=== PATIENT | male | born 1960 | race Caucasian/White ===

== ENCOUNTER 2021-12-12 06:24 | Observation (INO) ==
--- NOTE | 2021-11-23 14:08 | PAT Medication Instructions ---
Medication Instructions Date of Service November 23, 2021 Home Medications atorvastatin 10 mg tablet 10 mg PO HS gabapentin 600 mg tablet 600 mg PO HS PRN insulin glargine 100 unit/mL (3 mL) subcutaneous pen (Basaglar KwikPen U-100 Insulin) 22 unit SUBCUT HS lisinopril 10 mg-hydrochlorothiazide 12.5 mg tablet 1 tab PO QAM melatonin 5 mg tablet 5 mg PO HS PRN sitagliptin 25 mg tablet (Januvia) 25 mg PO QAM DO NOT take the morning of surgery lisinopril 10 mg-hydrochlorothiazide 12.5 mg tablet 1 tab PO QAM sitagliptin 25 mg tablet (Januvia) 25 mg PO QAM Take evening before surgery atorvastatin 10 mg tablet 10 mg PO HS gabapentin 600 mg tablet 600 mg PO HS PRN (if needed) insulin glargine 100 unit/mL (3 mL) subcutaneous pen (Basaglar KwikPen U-100 Insulin) 22 unit SUBCUT HS melatonin 5 mg tablet 5 mg PO HS PRN (if needed) OTHERWISE NOTHING TO EAT OR DRINK AFTER MIDNIGHT Other Notes If you have any questions please call us at [phone] or [phone] or [phone] or [phone]
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
--- NOTE | 2021-11-28 12:24 | PAT Medication Instructions ---
Medication Instructions Date of Service November 28, 2021 Home Medications atorvastatin 10 mg tablet 10 mg PO HS gabapentin 600 mg tablet 600 mg PO BID PRN insulin glargine 100 unit/mL (3 mL) subcutaneous pen (Basaglar KwikPen U-100 Insulin) 22 unit SUBCUT HS melatonin 5 mg tablet 5 mg PO HS PRN sitagliptin 25 mg tablet (Januvia) 25 mg PO QAM chlorthalidone 25 mg PO DAILY lisinopril 20 mg PO DAILY DO NOT take the morning of surgery sitagliptin 25 mg tablet (Januvia) 25 mg PO QAM chlorthalidone 25 mg PO DAILY lisinopril 20 mg PO DAILY Take morning of surgery With a small sip of water, OTHERWISE NOTHING TO EAT OR DRINK AFTER MIDNIGHT: gabapentin 600 mg tablet 600 mg PO BID PRN(if needed) Take evening before surgery gabapentin 600 mg tablet 600 mg PO BID PRN(if needed) atorvastatin 10 mg tablet 10 mg PO HS insulin glargine 100 unit/mL (3 mL) subcutaneous pen (Basaglar KwikPen U-100 Insulin) 22 unit SUBCUT HS melatonin 5 mg tablet 5 mg PO HS PRN(if needed) Other Notes If you have any questions please call us at [phone] or [phone] or [phone] or [phone]
[~2021-12-12 06:24] MED LIST: ACETAMINOPHEN 500 MG TAB PO SCH; CeleBREX 200 MG CAP PO SCH; GABAPENTIN 600 MG DOSE PO SCH; LR 15ML/HR IV SCH
[2021-12-12] MEDS ORDERED: MIDAZOLAM HCL 1 MG/ML 2ML VIAL ONE (06:56)
[2021-12-12] MEDS ORDERED: fentaNYL citrate 100 MCG/2 ML VIAL ONE (06:56)
[2021-12-12] MEDS ORDERED: PROPOFOL IV EMULSION 10 MG/ML 100 ML VIAL IV ONE (06:59)
[2021-12-12] MEDS ORDERED: ONDANSETRON INJ 2 MG/ML 2 ML VIAL IV PRN ×2 (07:31→11:28)
[2021-12-12] MEDS ORDERED: HYDROmorphone INJ 2 MG/ML SYR/VIAL IV PRN (07:31)
[2021-12-12] MEDS ORDERED: ePHEDrine sulfate 50 MG/ML AMP IV PRN (07:31)
[2021-12-12] MEDS ORDERED: PROMETHAZINE HCL 12.5 MG in SODIUM CHLORIDE 0.9% 50 ML IV PRN ×2 (07:31→11:28)
[2021-12-12] MEDS ORDERED: ATROPINE SULFATE 0.1 MG/ML 10ML SYR IV PRN (07:31)
--- NOTE | 2021-12-12 07:36 | History & Physical Bridge Note ---
Date of Service December 12, 2021 History & Physical Bridge Note I have examined the patient, reviewed the History & Physical and in the interval since the performance of the History & Physical I have noted the following changes of clinical significance: no changes noted
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
[2021-12-12] MEDS ORDERED: ceFAZolin 330 MG/ML 1 GM VIAL ONE (07:39)
[2021-12-12] MEDS ORDERED: FLOSEAL HEMOSTATIC MATRIX 10ML TOP ONE (08:18)
[2021-12-12] MEDS ORDERED: ONDANSETRON INJ 2 MG/ML 2 ML VIAL ONE (08:20)
[2021-12-12] MEDS ORDERED: ROCURONIUM BROMIDE 10 MG/ML 5 ML VIAL IV ONE (08:20)
[2021-12-12] MEDS ORDERED: SUCCINYLCHOLINE CHLORIDE 20 MG/ML 10 ML VIAL IV ONE (08:20)
[2021-12-12] MEDS ORDERED: PROPOFOL IV EMULSION 10 MG/ML 20 ML VIAL IV ONE (08:20)
[2021-12-12] MEDS ORDERED: LIDOCAINE 2% 2 ML VIAL/AMP(20MG/ML) INFIL ONE (08:20)
[2021-12-12] MEDS ORDERED: NEOSTIGMINE METHYLSULFATE 1 MG/ML 10ML VIAL ONE (08:20)
[2021-12-12] MEDS ORDERED: GLYCOPYRROLATE 0.2 MG/ML VIAL ONE (08:20)
--- NOTE | 2021-12-12 09:07 | Operative Report ---
Post Operative Report Pre & Post Diagnosis Operation Date: 12/12/21 07:45 Pre-Op Diagnosis: Spinal Stenosis, Cervical Region Post-Op Diagnosis: Spinal Stenosis, Cervical Region I identified the patient and participated in the time-out.: Yes Procedure Operation Date: 12/12/21 07:45 Actual Procedures #1 anterior cervical discectomy with bilateral foraminotomies C4-C5. #2 anterior cervical arthrodesis C4-C5. #3 placement of 7 mm spiral cage filled I factor C4-C5. #4 application of arteaga plate and screws across C4-C5. Surgeon Vinny Dubois, DO Trial Attorney Marium Delgado Estimated Blood Loss 10 Findings See Below The patient is 5 foot 5 inches tall weighing over 125 kg with a BMI in excess of 46. The patient's body habitus did contribute to significant technical difficulty from positioning to exposure. This had at least 50% increased operative time. Specimens None Indications This is a 61-year-old male who presents above-mentioned diagnosis after failing course of nonoperative care is here for surgical invention. Description of Procedure Patient was met with identified informed consent obtained. Patient was then taken to the operative suite underwent a patient placed in a supine position adjustable head Hardin hogshead weigher. All bony prominences well-padded eyes inspected to ensure no external pressure placed upon the. This point the anterior cervical spine was prepped and draped in a sterile fashion. With assistance of fluoroscopy identified the C4-5 disc space and a transverse incision was placed on the right anterior aspect of the cervical spine overlying this region. Blunt dissection with assistance of bipolar electrocautery was performed until exposing the anterior cervical spine at C4-C5. A self-retaining retractors placed. Then performed a complete discectomy of C4-C5 out to the uncovertebral's bilaterally. Fabius distracting pins were utilized to assist in visualization. I removed all posterior annular fibers longitudinal ligament bilateral foraminotomies performed. Endplates were then burred to subcortical bleeding bone and a 7 mm Spira cage filled with I factor tapped in position. Distracting apparatus was removed and a 5 complete and screws applied with the assistance of fluoroscopy. The incision was then copiously irrigated explored to ensure no demonstrate surrounding structures remaining bleeding. 10 round IVETTE drain inserted. The incision was then closed with 2 Vicryl in a fashion of 4 Monocryl for final skin closure. Steri-Strip sterile dressings placed. Patient waken taken PACU stable condition. Lastly Marium Delgado was present throughout the entire procedure involved patient positioning complex portions of the surgery and final skin closure. I attest to the content of the Intraoperative Record and any orders documented therein. Any exceptions are noted below.
--- NOTE | 2021-12-12 09:27 | Fluoroscopy Report ---
FL cervical 2-3V CLINICAL HISTORY: ACDF C4-C5 TECHNIQUE: 2 views were obtained with the C-arm in the OR with the above procedure. Total fluoroscopy time was 16.7 seconds. Total skin dose was 3.01 mGy. Comparison: None available at the time of this dictation. FINDINGS/IMPRESSION: Intraoperative images were obtained of ACDF of C4-C5. Please correlate with intraoperative fluoroscopy and operative report. ACT 112: Negative or not required by law. Electronically signed by: Landry Liu M.D. 12/12/2021 9:26 AM
[2021-12-12] MEDS: fentaNYL citrate 100 MCG/2 ML VIAL IV PRN ×4 (09:39→10:28)
--- NOTE | 2021-12-12 10:16 | Anesthesiology Progress Note ---
Date of Service December 12, 2021 Anesthesia Post Procedure Vital Signs Vital Signs: Temp Pulse Pulse Resp BP Pulse Ox 12/12/21 10:05 62 16 126/76 94 12/12/21 09:55 63 15 136/80 95 12/12/21 09:45 69 19 119/83 95 12/12/21 09:35 81 20 137/82 95 12/12/21 09:26 97.0 F L 86 20 141/81 H 97 12/12/21 06:50 98.4 F 75 20 135/79 95 Pain Intensity Neck: Pain Intensity: 2 Transfer of Care Handoff Completed per policy Notes Mental Status: alert / awake / arousable and participated in evaluation Patient Amnestic to Procedure: Yes Nausea / Vomiting: adequately controlled Pain: adequately controlled and improving with treatment Airway Patency, RR, SpO2: stable & adequate BP & HR: stable & adequate Hydration State: stable & adequate Anesthetic Complications: no major complications apparent and Pt Satisfied with anesthetic care
[2021-12-12] MEDS ORDERED: ONDANSETRON 4 MG OD TAB PO PRN (11:28)
[2021-12-12] MEDS ORDERED: METOCLOPRAMIDE HCL INJ 5 MG/ML 2 ML VIAL IV PRN (11:28)
[2021-12-12] MEDS ORDERED: SOD PHOSPHATE/SOD BIPHOSPHATE ENEMA 132 ML BTL PR PRN (11:28)
[2021-12-12] MEDS ORDERED: bisacodyL 10 MG SUPP PR PRN (11:28)
[2021-12-12] MEDS ORDERED: ALUMINUM/MAGNESIUM SUSP 30 ML UDC PO PRN (11:28)
[2021-12-12] MEDS ORDERED: LORazepam 2 MG/1 ML VIAL IV PRN (11:28)
[2021-12-12] MEDS ORDERED: HYDROmorphone INJ 1 MG/ML SYRINGE IV PRN (11:28)
[2021-12-12] MEDS ORDERED: MAGNESIUM HYDROXIDE SUSP 30 ML UDC PO PRN (11:28)
[2021-12-12] MEDS ORDERED: DO NOT ADMINISTER PNEUMOCOCCAL VACCINE PRN (11:28)
[2021-12-12] MEDS ORDERED: DO NOT ADMINISTER FLU VACCINE PRN (11:28)
[2021-12-12] MEDS ORDERED: ACETAMINOPHEN 500 MG TAB PO PRN (11:28)
[2021-12-12] MEDS ORDERED: hydrOXYzine HCl 25 MG TAB PO PRN (11:28)
[2021-12-12] MEDS ORDERED: HYDROmorphone INJ 0.5 MG/0.5 ML SYR IV PRN (11:28)
[2021-12-12] MEDS ORDERED: RACEPINEPHRINE 2.25% NEBU SOLN 0.5 ML VIAL INH PRN (11:28)
[2021-12-12] MEDS ORDERED: diphenhydrAMINE Capsule 25 MG CAP PO PRN (11:28)
[2021-12-12] MEDS ORDERED: NALOXONE HCL 0.4 MG/1 ML VIAL/CARP IV PRN (11:28)
[2021-12-12] MEDS ORDERED: ACETAMINOPHEN 1,000 MG/100 ML VIAL IV PRN (11:28)
[2021-12-12] MEDS ORDERED: LORazepam 0.5 MG TAB PO PRN (11:28)
[2021-12-12] MEDS ORDERED: FAMOTIDINE 20 MG TAB PO PRN (11:28)
[2021-12-12] MEDS ORDERED: PHARMACY GLYCEMIC MGMT CONSULT PRN (11:28)
[2021-12-12] MEDS ORDERED: dexAMETHasone 8 MG in SYRINGE 0 ML IV PRN (11:28)
[2021-12-12] MEDS ORDERED: GABAPENTIN 600 MG TAB PO PRN (11:28)
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
[2021-12-12] MEDS ORDERED: CARBOHYDRATES FOR HYPOGLYCEMIA PO PRN (11:53)
[2021-12-12] MEDS ORDERED: GLUCOSE 40% GEL 15 GM TUBE PO PRN (11:53)
[2021-12-12] MEDS ORDERED: DEXTROSE 50% 50 ML SYRINGE IV PRN (11:53)
[2021-12-12] MEDS ORDERED: GLUCAGON FOR INJ 1 MG VIAL SQ PRN (11:53)
[2021-12-12] MEDS ORDERED: GLUCOSE 10 TABS/TUBE PO PRN (11:53)
[2021-12-12] MEDS: SODIUM CHLORIDE 0.9% 1000ML 1,000 ML IV SCH ×2 (12:13→19:11)
[2021-12-12] MEDS ORDERED: CHLORASEPTIC 1.4% SOLN 180 ML BTL MT PRN (12:13)
[2021-12-12] MEDS: oxyCODONE HCL IR 5 MG TAB (IMMEDIATE RELEASE) PO PRN ×2 (12:18→23:41)
[2021-12-12] MEDS: INSULIN ASPART PER UNIT SC SCH ×3 (13:04→21:45)
--- NOTE | 2021-12-12 14:40 | Pharmacy Report ---
Pharmacy Glycemic Short Note 2 - Date of Service December 12, 2021 - Glycemic Short BSG Results (Last 24 hours): 12/12/21 12/12/21 12/12/21 06:59 09:30 12:19 POC Glucose 157 H 151 H 203 H OUTPATIENT ANTIDIABETIC REGIMEN: * Januvia 100 mg PO qAM * Basaglar 22 units HS ASSESSMENT: * Mr Chappell is a 61 y/o M with a PMH of T2DM on insulin who presents for spinal surgery. HbA1C not known but currently ordered. * Preop BSGs are 157-151 mg/dL and postop is 203 mg/dL. * Will give home dose of Lantus at dinnertime. No additional Lantus as patient did not receive steroids. * Novolog weight-based stress of 2 for now. * Patient to receive dexamethasone 6 mg IV daily starting 12/13/21 so will order NPH and tighten Novolog accordingly. PLAN FOR INPATIENT GLYCEMIC CONTROL: * Hold outpatient oral diabetes medications * Basal insulin * Lantus 22 units SQ HS * Bolus insulin * NovoLog per scale ACHS or Q6hrs while NPO * Goal Range: Low 110 mg/dL - High 140 mg/dL * Correction Factor: 20 mg/dL/unit * Nutritional / Prandial insulin per carb ratio of 1 unit per 6 grams CHO consumed
[2021-12-12] MEDS: ceFAZolin 2000MG 2,000 MG/15 ML SYR IV SCH ×2 (15:11→23:41)
[2021-12-12] MEDS ORDERED: INSULIN GLARGINE SOLOSTAR 100 UNITS/ML 3 ML PEN SC SCH (17:00)
[2021-12-12] MEDS: traMADol HCL 50 MG TABLET PO PRN (17:12)
[2021-12-12] MEDS ORDERED: ATORVASTATIN 10 MG TAB PO SCH (21:00)
[2021-12-12] MEDS ORDERED: DOCUSATE SODIUM/SENNA 50/8.6MG TAB PO SCH (21:00)
[2021-12-13] MEDS: SODIUM CHLORIDE 0.9% 1000ML 1,000 ML IV SCH (01:55)
[2021-12-13] MEDS ORDERED: POLYETHYLENE (MIRALAX) 17 GM PACK PO SCH (06:00)
[2021-12-13] MEDS: traMADol HCL 50 MG TABLET PO PRN ×2 (07:36→11:31)
[2021-12-13 07:41] LABS: Basophils # (auto) 0.01 K/uL (0-0.2); Basophils % (auto) 0.2 %; Eosinophils # (auto) 0.11 K/uL (0-0.5); Eosinophils % (auto) 2.2 %; Hematocrit (blood only) 38.3 % (42-52); Hemoglobin 13.1 g/dL (14.0-18.0); Lymphocytes # (auto) 1.13 K/uL (1.2-3.4); Lymphocytes % (auto) 22.4 %; Mean Corpuscular Hemoglobin 31.5 pg (25-34); Mean Corpuscular Hgb Conc 34.2 g/dL (32-36); Mean Corpuscular Volume 92.1 fL (80-100); Mean Platelet Volume 10.1 fL (7.4-10.4); Monocytes # (auto) 0.52 K/uL (0.11-0.59); Monocytes % (auto) 10.3 %; Neutrophils # (auto) 3.27 K/uL (1.4-6.5); Neutrophils % (auto) 64.9 %; Platelet Count 100 K/uL (130-400); RDW Coefficient of Variation 13.2 % (11.5-14.5); Red Blood Count 4.16 M/uL (4.7-6.1); White Blood Count 5.04 K/uL (4.8-10.8)
[2021-12-13 08:00] LABS: Albumin Globulin Ratio 1.8 (0.9-2); Albumin Level 4.1 gm/dl (3.4-5.0); BUN Creatinine Ratio 12.1 (10-20); Bilirubin,Total 1.9 mg/dl (0.2-1.0); Calcium 8.5 mg/dl (8.5-10.1); Creatinine Clr Calc Pharmacy 105.1 ml/min; Est GFR (African American) 105.1 ml/min; Est GFR (Non-African American) 90.6 ml/min; Globulin 2.3 gm/dl (2.5-4.0); Total Protein 6.4 gm/dl (6.0-8.3)
[2021-12-13 08:03] LABS: Estimated Average Glucose 180 mg/dl; Hemoglobin A1C 7.9 % (4.5-5.6)
--- NOTE | 2021-12-13 08:24 | Discharge Summary ---
Date of Service December 13, 2021 Principal Diagnosis Cervical spinal stenosis with radiculopathy Discharge Data Allergies Allergy/AdvReac Type Severity Reaction Status Date / Time No Known Drug Allergies Allergy Unknown NKDA Verified 12/12/21 06:47 Consultations 12/12/21 11:28 Consult Hospitalist Routine Procedures Performed Operation Date: 12/12/21 07:45 Actual Procedures p C4-C5 Anterior Cervical Discectomy and Fusion(Not Applicable) - Vinny Dubois DO Ordered Studies 12/12/21 07:45 FL cervical 2-3V Routine Hospital Course (1) Cervical stenosis of spinal canal: Patient 1 anterior cervical discectomy and fusion tolerated procedure well taken to orthopedic for postoperative. Postop day 1 swallowing well no hoarseness. Arm symptoms improved. IVETTE drain decreasing appropriate. Safely discharged home. Discharge orders instructions from the chart for further review. Total Time Total Time Spent Total Time Spent (In Minutes): 20 minutes Discharge Plan Discharge Items Patient Disposition: Home - Self-Care Reason For Visit: Spinal Stenosis, Cervical Region Discharge Diagnosis: Cervical spinal stenosis with radiculopathy Activity: As commented below Non-emergency contact: Primary Care Provider Call non-emergency contact if: you have any medication questions Follow-up/Referrals: Mil Weinstein [Primary Care Provider] - Diet: Regular Addtl Attending Provider Instructions: ACTIVITY RECOMMENDATIONS: SELF CARE INSTRUCTIONS AFTER CERVICAL FUSIONS 1. No smoking. Smoking drastically decreases the chance of a solid fusion. 2. No bending, lifting more than 5 pounds, or twisting (roll like a log when turning in bed). 3. You may shower 3 days after surgery. Thoroughly dry wound. Do not soak in the tub. 4. Cervical collar: Must be worn at all times including sleeping. You may remove the brace only to bath, eat and if you are sitting in a recliner. 5. Please walk as much as you can for exercise. Gradually increase the distance that you walk as your endurance increases. SPECIAL CARE INSTRUCTIONS: VERY IMPORTANT TO READ AND REVIEW A. Do not take any anti-inflammatory medications (i.e. Indocin, Advil, Aspirin, Naprosyn, Aleve, Motrin, etc.) as these may inhibit the chance of a solid fusion. Tylenol is okay to take. B. Your surgical incision has been closed with a cosmetic suture under the skin that will dissolve in about 6 weeks. In 14 days, you can use a pair of clean scissors and cut the suture that is left outside of the skin at the ends of your incision. C. Complications are uncommon, but please contact us if you have any signs or symptoms of: 1. wound infection (fever higher than 102.5 degrees F, redness, separation of wound, drainage, or increasing pain from the incision) 2. blood clots in legs (pain, swelling, redness and warmth in legs) 3. urinary tract infection (fever higher than 102.5 degrees, burning upon urination or increased frequency of urination) 4. nerve problems (inability to walk on your toes or heels, numbness, loss of bowel or bladder control) 5. any other symptoms that concern you. D. Please call the office at if you have any concerns or questions about your operation or recovery. MANAGING PAIN AFTER SPINAL SURGERY 1. Narcotic medication is intended for short-term use and will be provided for surgical pain. Surgical pain usually lasts for a period of 4-6 weeks. Narcotic medication includes Percocet, Vicodin, Darvocet, Tylenol #3 or Lortab. 2. Longer-term pain is more appropriately treated with non-narcotic medication such as Tylenol ES. 3. Muscle spasm is not appropriately treated with narcotics. Muscle relaxers such as Soma, Flexeril or Skelaxin can be used along with Tylenol ES. 4. Remember that we all live with some "aches and pains". This is not unusual or uncommon after an injury or as we get older. 5. We will provide appropriate medication within the normal guidelines of their prescribed use. We will also be very cautious and aware of potential abuse and extended duration of patients' medication needs. 6. Please allow 2-3 days to process refills. Prescriptions will not be mailed but must be picked up at the office. FOLLOW UP VISIT: Keep your scheduled follow-up appointment. Any questions, please call the office at . Pending Studies at Discharge: No Stand-Alone Forms: My Apptive, Smoking Cessation Medications and DC Order Prescriptions: New tramadol 50 mg tablet 50 mg PO Q6H PRN (Reason: pain, moderate) Qty: 30 RF: 0 oxycodone 5 mg tablet 5 mg PO Q6H PRN (Reason: pain, severe) Qty: 20 RF: 0 Continued gabapentin 600 mg Tablet 600 mg PO TID PRN (Reason: Pain) RF: 0 atorvastatin 10 mg Tablet 10 mg PO HS RF: 0 Januvia 25 mg Tablet 100 mg PO QAM RF: 0 insulin glargine [Basaglar KwikPen U-100 Insulin] 100 unit/mL (3 mL) Insulin Pen 22 unit SUBCUT HS RF: 0 melatonin 5 mg Tablet 5 mg PO HS PRN (Reason: Sleep) RF: 0 chlorthalidone 25 mg PO DAILY RF: 0 lisinopril 20 mg PO DAILY RF: 0 Discharge Orders: Discharge Order (Routine); Ordered 12/13/21 Ordered By: Vinny Dubois Admission Data Admit Date/Time: 12/12/21 09:10 Attending Provider: Vinny Dubois Admit Provider: Vinny Dubois Primary Care Provider: Mil Weinstein Other Providers: Rahul Gonzalez
[2021-12-13] MEDS ORDERED: INSULIN HUMAN NPH SC SCH (09:00)
[2021-12-13] MEDS ORDERED: SITagliptin PHOSPHATE 100 MG TAB PO SCH (09:00)
[2021-12-13] MEDS ORDERED: CHLORTHALIDONE 25 MG TAB PO SCH (09:00)
[2021-12-13] MEDS ORDERED: lisinopril 20 MG TAB PO SCH (09:00)
[2021-12-13] MEDS ORDERED: dexAMETHasone 6 MG in SYRINGE 0 ML IV SCH (09:00)
[2021-12-13] MEDS: INSULIN ASPART PER UNIT SC SCH (09:21)
[2021-12-13] MEDS: oxyCODONE HCL IR 5 MG TAB (IMMEDIATE RELEASE) PO PRN (09:33)
--- NOTE | 2021-12-13 11:54 | Hospitalist Progress Note ---
Date of Service December 13, 2021 Assessment & Plan (1) Cervical stenosis of spinal canal: (2) Diabetes mellitus: (3) Hypertension: (4) Tobacco abuse: (5) Sleep apnea: Plan: Cervical Stenosis of spinal canal S/P ACDF C4-[address] Dubois, POD # 1- further management per primary team - Actual Procedures - Operation Date: 12/12/21 07:45 #1 anterior cervical discectomy with bilateral foraminotomies C4-C5. #2 anterior cervical arthrodesis C4-C5. #3 placement of 7 mm spiral cage filled I factor C4-C5. #4 application of arteaga plate and screws across C4-C5. T2DM, insulin-dependent- A1c 7.9. continue home meds HTN- continue home meds januvia basaglar HLD- continue statin VLADISLAV- non compliant with cpap Nicotine/tobacco abuse- Encourage cessation Elevated LFTs- LFTs shows mild elevation of transaminase (ALT>AST; <100)- patient and family aware and says nothing new- he was taking lots of tylenol and was then switched to gabapentin. Also said to have fatty liver. Recommended avoiding alcohol, tylenol and repeat LFTs in next few 2-4 weeks to ensure improving- otherwise recommended follow up with PCP or GI. Patient and family aware of the recommendation. Patient is getting discharged per primary team. Stable for discharge from hospitalist perspective Admission and Anticipated Discharge Date Admission Date: December 12, 2021 Subjective Dressed up and ready to get discharge home. Pain controlled. Denies any needs. Tolerating oral intake without issues. Voiding well without issues. No BM yet but passing lots of gas. Discussed about his mildly elevated AST/ALT, he and family at beside are aware. Physical Exam Physical Exam: General: Sitting comfortably in chair, on cervical neck collar, not in distress, on room air Chest: Clear bilaterally CVS: Regular, normal heart sounds Abdomen: Soft, non tender, not distended, bowel sounds + Neuro: Awake, alert, oriented, conversing well, non focal Extremities: No edema Results & Data Results & Data ([facility]) Vital Signs (Past 12 Hours) Vital Signs Temp Pulse Resp BP Pulse Ox 12/13/21 11:02 83 16 96 12/13/21 10:44 36.7 C 76 18 144/82 H 94 12/13/21 09:25 36.7 C 76 18 144/82 H 94 12/13/21 07:22 36.6 C 63 18 139/83 94 12/13/21 07:05 59 L 16 95 12/13/21 05:00 36.5 C 65 14 118/76 95 12/13/21 03:35 36.4 C L 58 L 14 120/78 100 12/13/21 03:32 94 H 16 98 12/13/21 01:33 36.5 C 53 L 12 119/79 94 Laboratory Results Laboratory Results WBC 5.04 K/uL (4.8-10.8) 12/13/21 07:11 RBC 4.16 M/uL (4.7-6.1) L 12/13/21 07:11 Hgb 13.1 g/dL (14.0-18.0) L 12/13/21 07:11 Hct 38.3 % (42-52) L 12/13/21 07:11 MCV 92.1 fL (80-100) 12/13/21 07:11 MCH 31.5 pg (25-34) 12/13/21 07:11 MCHC 34.2 g/dL (32-36) 12/13/21 07:11 RDW Std Deviation 44.0 fL (36.4-46.3) 12/13/21 07:11 RDW Coeff of Petty 13.2 % (11.5-14.5) 12/13/21 07:11 Plt Count 100 K/uL (130-400) L 12/13/21 07:11 MPV 10.1 fL (7.4-10.4) 12/13/21 07:11 Immature Gran % (Auto) 0.0 % 12/13/21 07:11 Neut % (Auto) 64.9 % 12/13/21 07:11 Lymph % (Auto) 22.4 % 12/13/21 07:11 [place] % (Auto) 10.3 % 12/13/21 07:11 Eos % (Auto) 2.2 % 12/13/21 07:11 Baso % (Auto) 0.2 % 12/13/21 07:11 Neut # (Auto) 3.27 K/uL (1.4-6.5) 12/13/21 07:11 Lymph # (Auto) 1.13 K/uL (1.2-3.4) L 12/13/21 07:11 [place] # (Auto) 0.52 K/uL (0.11-0.59) 12/13/21 07:11 Eos # (Auto) 0.11 K/uL (0-0.5) 12/13/21 07:11 Baso # (Auto) 0.01 K/uL (0-0.2) 12/13/21 07:11 Immature Gran # (Auto) 0.00 K/uL (0.00-0.02) 12/13/21 07:11 Sodium 135 mmol/L (136-145) L 12/13/21 07:11 Potassium 4.0 mmol/L (3.5-5.1) 12/13/21 07:11 Chloride 104 mmol/L (98-107) 12/13/21 07:11 Carbon Dioxide 27 mmol/L (21-32) 12/13/21 07:11 Anion Gap 4 (3-11) 12/13/21 07:11 BUN 11 mg/dl (6-23) 12/13/21 07:11 Creatinine 0.91 mg/dl (0.6-1.4) 12/13/21 07:11 Est Cr Clr Drug Dosing 105.1 ml/min 12/13/21 07:11 Est GFR ( Amer) 105.1 ml/min 12/13/21 07:11 Est GFR (Non-Af Amer) 90.6 ml/min 12/13/21 07:11 BUN/Creatinine Ratio 12.1 (10-20) 12/13/21 07:11 Glucose 134 mg/dl (70-99(Fasting)) H 12/13/21 07:11 POC Glucose 162 mg/dl (70-99) H 12/13/21 08:02 Estimat Average Glucose 180 mg/dl 12/13/21 07:11 Hemoglobin A1c 7.9 % (4.5-5.6) H 12/13/21 07:11 Calcium 8.5 mg/dl (8.5-10.1) 12/13/21 07:11 Total Bilirubin 1.9 mg/dl (0.2-1.0) H 12/13/21 07:11 AST 65 U/L (13-39) H 12/13/21 07:11 ALT 90 U/L (7-52) H 12/13/21 07:11 Alkaline Phosphatase 61 U/L (34-104) 12/13/21 07:11 Total Protein 6.4 gm/dl (6.0-8.3) 12/13/21 07:11 Albumin 4.1 gm/dl (3.4-5.0) 12/13/21 07:11 Globulin 2.3 gm/dl (2.5-4.0) L 12/13/21 07:11 Albumin/Globulin Ratio 1.8 (0.9-2) 12/13/21 07:11 SARS-CoV-2, RNA, NAAT NEGATIVE (NEGATIVE) 12/12/21 06:37 Impressions Cervical Spine X-Ray 12/12/21 07:45 FL cervical 2-3V CLINICAL HISTORY: ACDF C4-C5 TECHNIQUE: 2 views were obtained with the C-arm in the OR with the above procedure. Total fluoroscopy time was 16.7 seconds. Total skin dose was 3.01 mGy. Comparison: None available at the time of this dictation. FINDINGS/IMPRESSION: Intraoperative images were obtained of ACDF of C4-C5. Please correlate with intraoperative fluoroscopy and operative report. ACT 112: Negative or not required by law. Electronically signed by: Landry Liu M.D. 12/12/2021 9:26 AM
--- NOTE | 2021-12-13 23:04 | Electrocardiogram Report ---
Test Reason : Blood Pressure : / mmHG Vent. Rate : 055 BPM Atrial Rate : 055 BPM P-R Int : 164 ms QRS Dur : 078 ms QT Int : 418 ms P-R-T Axes : 034 020 023 degrees QTc Int : 399 ms Sinus bradycardia Otherwise normal ECG When compared with ECG of 21-JUL-2012 13:15, Vent. rate has decreased BY 48 BPM Confirmed by Vidal Chaudhary ([id number]) on 12/13/2021 11:04:24 PM Referred By: Vinny Dubois Confirmed By:Vidal Chaudhary
== END 2021-12-13 11:45 | disposition home or self-care (01) | DRG 472 ==
LOC: ASU 06:24 → 3E 09:10 → INTOOBSV 09:10